=== PATIENT | female | born 1955 | race Caucasian/White ===

== ENCOUNTER 2018-08-11 10:55 | Emergency (ER) | payer MEDICARE ==
[~2018-08-11] VITALS: Ht 170.2 cm; Wt 72.6 kg
[2018-08-11] MEDS ORDERED: fentaNYL PF VIAL 100 MCG/2 ML VIAL IV ONE (11:30)
--- NOTE | 2018-08-11 11:32 | PHYS DOC ---
Past Medical History Past Medical History: MS, Other Additional Past Medical Histor: BRAIN ANYESRUM Past Surgical History: Other Additional Past Surgical Histo: SHOULDER, R/L LUNG Alcohol Use: None Drug Use: None Adult General Chief Complaint Chief Complaint: RIB PAIN HPI HPI Patient is a 63 year old female was presenting with chief complaint of left- sided pain. She had a colonoscopy on Sunday ever since she got home she has had slowly increasing left upper quadrant left flank area pain she says it feels like the last time she had a collapsed lung in the pain is sharp worsening with time worse with palpation and worse with deep breathing no fever no vomiting she had a normal bowel movement yesterday with no blood in it. She has not yet tried anything at home for relief the pain is now severe this morning. It does not radiate he took OUT polyps Dr. Herrera that it Review of Systems Review of Systems Constitutional: Denies fever or chills [] Eyes: Denies change in visual acuity, redness, or eye pain [] HENT: Denies nasal congestion or sore throat [] Respiratory: Mild stable shortness of breath Cardiovascular: No additional information not addressed in HPI [] Integument: Denies rash or skin lesions [] Neurologic: Denies headache, focal weakness or sensory changes [] Endocrine: Denies polyuria or polydipsia [] All other systems were reviewed and found to be within normal limits, except as documented in this note. Current Medications Current Medications Current Medications Medications (Trade) Dose Ordered Sig/Hollie Start Time Stop Time Status Last Admin Dose Admin Acetaminophen/ Hydrocodone Bitart (Lortab 5/325) 2 tab 1X ONCE 08/11/18 15:15 08/11/18 15:16 DC 08/11/18 15:25 2 TAB Ceftriaxone Sodium (Rocephin) 1 gm 1X ONCE 08/11/18 13:30 08/11/18 13:31 DC 08/11/18 14:05 1 GM Fentanyl Citrate (Fentanyl 2ml Vial) 50 mcg 1X ONCE 08/11/18 11:30 08/11/18 11:31 DC 08/11/18 12:49 50 MCG Info (CONTRAST GIVEN -- Rx MONITORING) 1 each PRN DAILY PRN 08/11/18 13:00 08/11/18 15:34 DC Iohexol (Omnipaque 300 Mg/ml) 75 ml 1X ONCE 08/11/18 13:00 1/6/19 13:01 DC 08/11/18 14:00 75 ML Allergies Allergies Allergies Coded Allergies Type Severity Reaction Last Updated Verified codeine Allergy Intermediate 08/11/18 Yes morphine Allergy Intermediate 08/11/18 Yes Physical Exam Physical Exam Constitutional: Well developed, well nourished, no acute distress, non-toxic appearance. [] HENT: Normocephalic, atraumatic, bilateral external ears normal, oropharynx moist, no oral exudates, nose normal. [] Eyes: PERRLA, EOMI, conjunctiva normal, no discharge. [] Neck: Normal range of motion, no tenderness, supple, no stridor. [] Cardiovascular:Heart rate regular rhythm, no murmur [] Lungs & Thorax: PROLONGED EXP PHASE FAINT WHEEZING EQUAL BS. Abdomen: Bowel sounds normal, soft,LUQ AND LQL tenderness, no masses, no pulsatile masses. [] Skin: Warm, dry, no erythema, no rash. [] Back: LEFT CVA TTP. Neurologic: Alert and oriented X 3, normal motor function, normal sensory function, no focal deficits noted. [] Psychologic: Affect normal, judgement normal, mood normal. [] Current Patient Data Vital Signs Vital Signs Date Time Temp Pulse Resp B/P (MAP) Pulse Ox O2 Delivery O2 Flow Rate FiO2 08/11/18 15:26 78 18 149/75 (99) 96 Room Air 08/11/18 11:01 97.5 97.5 Lab Values Laboratory Tests Test 08/11/18 12:32 08/11/18 13:05 Urine Collection Type Unknown Urine Color Yellow Urine Clarity Clear Urine pH 7.5 Urine Specific [place] <=1.005 Urine Protein Negative mg/dL (NEG-TRACE) Urine Glucose (UA) Negative mg/dL (NEG) Urine Ketones (Stick) Negative mg/dL (NEG) Urine Blood Negative (NEG) Urine Nitrite Negative (NEG) Urine Bilirubin Negative (NEG) Urine Urobilinogen Dipstick 0.2 mg/dL (0.2 mg/dL) Urine Leukocyte Esterase Moderate (NEG) Urine RBC 1-2 /HPF (0-2) Urine WBC 20-40 /HPF (0-4) Urine Squamous Epithelial Cells Mod /LPF Urine Bacteria Many /HPF (0-FEW) White Blood Count 7.7 x10^3/uL (4.0-11.0) Red Blood Count 4.79 x10^6/uL (3.50-5.40) Hemoglobin 15.4 g/dL (12.0-15.5) Hematocrit 44.2 % (36.0-47.0) Mean Corpuscular Volume 92 fL (79-100) Mean Corpuscular Hemoglobin 32 pg (25-35) Mean Corpuscular Hemoglobin Concent 35 g/dL (31-37) Red Cell Distribution Width 13.5 % (11.5-14.5) Platelet Count 296 x10^3/uL (140-400) Neutrophils (%) (Auto) 60 % (31-73) Lymphocytes (%) (Auto) 32 % (24-48) Monocytes (%) (Auto) 7 % (0-9) Eosinophils (%) (Auto) 2 % (0-3) Basophils (%) (Auto) 0 % (0-3) Neutrophils # (Auto) 4.6 x10^3uL (1.8-7.7) Lymphocytes # (Auto) 2.4 x10^3/uL (1.0-4.8) Monocytes # (Auto) 0.5 x10^3/uL (0.0-1.1) Eosinophils # (Auto) 0.1 x10^3/uL (0.0-0.7) Basophils # (Auto) 0.0 x10^3/uL (0.0-0.2) Sodium Level 142 mmol/L (136-145) Potassium Level 3.9 mmol/L (3.5-5.1) Chloride Level 105 mmol/L (98-107) Carbon Dioxide Level 29 mmol/L (21-32) Anion Gap 8 (6-14) Blood Urea Nitrogen 5 mg/dL (7-20) L Creatinine 0.5 mg/dL (0.6-1.0) L Estimated GFR (Cockcroft-Gault) 125.4 BUN/Creatinine Ratio 10 (6-20) Glucose Level 90 mg/dL (70-99) Calcium Level 9.4 mg/dL (8.5-10.1) Magnesium Level 1.9 mg/dL (1.8-2.4) Total Bilirubin 0.5 mg/dL (0.2-1.0) Aspartate Amino Transferase (AST) 14 U/L (15-37) L Alanine Aminotransferase (ALT) 30 U/L (14-59) Alkaline Phosphatase 94 U/L (46-116) Troponin I Quantitative < 0.017 ng/mL (0.000-0.055) Total Protein 7.1 g/dL (6.4-8.2) Albumin 3.3 g/dL (3.4-5.0) L Albumin/Globulin Ratio 0.9 (1.0-1.7) L Lipase 76 U/L (73-393) Laboratory Tests 08/11/18 13:05 Laboratory Tests 08/11/18 13:05 EKG EKG [] Radiology/Procedures Radiology/Procedures [] Impressions: FINDINGS: CT angiogram chest: Diagnostic quality PE study. There are no central, segmental or subsegmental filling defects in the pulmonary arteries. Mild diffuse atherosclerotic disease seen of the thoracic aorta. Clear neck base. Heart is normal in size. No pericardial or pleural effusion. No axillary, mediastinal or hilar adenopathy. Calcified left hilar and subcarinal lymph nodes are seen. Diffuse moderate emphysema. Central airways are patent. No suspicious bony lesions in the chest. CT abdomen pelvis: Liver, spleen, pancreas, adrenals within normal limits. Status post cholecystectomy. CBD is dilated without obstructing stone likely from reservoir effect from cholecystectomy. No nephrolithiasis or hydronephrosis. Punctate calcific densities seen along the course of the distal right ureter. No enlarged retroperitoneal or pelvic adenopathy. Moderate diffuse atherosclerotic disease seen of the abdominal aorta. No free pelvic fluid or ascites. No bowel obstruction. Status post hysterectomy. Urinary bladder is within normal limits. Low-lying transverse colon. No pneumoperitoneum. No suspicious bony lesion. IMPRESSION: 1. No PE. 2. Moderate diffuse emphysema. 3. No acute findings in the abdomen or pelvis. Electronically signed by: Rodolfo Torres DO (08/11/2018 2:47 PM) [facility] DICTATED and SIGNED BY: RODOLFO TORRES DO DATE: 08/11/18 5149 Course & Med Decision Making Course & Med Decision Making Pertinent Labs and Imaging studies reviewed. (See chart for details) []EKG, CXR, CT C/A/P R/O PE OR PERFORATION. FETANYL FOR PAIN SOME REPRODUCIBILITY ON EXAM33 Lab and CT workup is negative except for UTI patient's feeling better after ER treatment for schizophrenia and Plavix was given return precautions were discussed she appears well-appearing enough for discharge home. Dragon Disclaimer Dragon Disclaimer This electronic medical record was generated, in whole or in part, using a voice recognition dictation system. Departure Departure Impression: Primary Impression: Urinary tract infection Disposition: HOME, SELF-CARE Condition: STABLE Referrals: NON,STAFF (PCP) Scripts Cephalexin (CEPHALEXIN) 500 Mg Capsule 1 CAP PO QID, #40 CAP Prov: SERGIO HARDIN MD 08/11/18 Hydrocodone/Apap 5-325 (NORCO 5-325 TABLET) 1 Each Tablet 1-2 EACH PO PRN Q6HRS PRN for PAIN, #15 as needed for pain Prov: SERGIO HARDIN MD 08/11/18 SERGIO HARDIN MD Aug 11, 2018 11:32
--- NOTE | 2018-08-11 11:42 | RAD ---
PORTABLE CHEST 1V History: SHORT OF BREATH AND INCREASED LEFT SIDED CHEST PAIN SINCE SUNDAY AFTER COLONOSCOPY. Comparison: September 10, 2012 image available without report Cardiomediastinal silhouette: Not grossly enlarged. Lungs: No focal airspace consolidation. Pleura: No evidence of pleural effusion. Pneumothorax: None visualized Support Devices: None There is suture material overlying the left lateral lung base. Density overlying the right upper mediastinum likely a vascular stent. Impression: No consolidating infiltrate. Electronically signed by: Myron Beck MD (08/11/2018 11:37 AM) [facility]
[2018-08-11 12:48] LABS: BILIRUBIN,URINE NEGATIVE (NEG); CLARITY,URINE CLEAR; COLOR,URINE YELLOW; NITRITE,URINE NEGATIVE (NEG); PH,URINE 7.5; PROTEIN,URINE NEGATIVE (NEG-TRACE); UROBILINOGEN,URINE 0.2 mg/dL (0.2 mg/dL)
[2018-08-11] MEDS ORDERED: CONTRAST GIVEN. MC PRN (13:00)
[2018-08-11] MEDS ORDERED: IOHEXOL 300 MG/ML 100ML VIAL. IV ONE (13:00)
[2018-08-11 13:02] LABS: BACTERIA,URINE MANY /HPF (0-FEW); SQUAMOUS EPITHELIAL CELL,UR MOD /LPF; WBC,URINE 20-40 /HPF (0-4)
[2018-08-11] MEDS ORDERED: cefTRIAXone IV Push 1 GM VIAL. IVP ONE (13:30)
[2018-08-11 13:54] LABS: BASO % 0 % (0-3); EOS # 0.1 x10^3/uL (0.0-0.7); EOS % 2 % (0-3); HEMATOCRIT 44.2 % (36.0-47.0); HEMOGLOBIN 15.4 g/dL (12.0-15.5); LYMPH # 2.4 x10^3/uL (1.0-4.8); LYMPH % 32 % (24-48); MEAN CORPUSCULAR HEMOGLOBIN 32 pg (25-35); MEAN CORPUSCULAR HGB CONC 35 g/dL (31-37); MEAN CORPUSCULAR VOLUME 92 fL (79-100); MONO # 0.5 x10^3/uL (0.0-1.1); MONO % 7 % (0-9); NEUT # 4.6 x10^3uL (1.8-7.7); NEUT % 60 % (31-73); PLATELET COUNT 296 x10^3/uL (140-400); RED BLOOD COUNT 4.79 x10^6/uL (3.50-5.40); RED CELL DISTRIBUTION WIDTH 13.5 % (11.5-14.5); WHITE BLOOD COUNT 7.7 x10^3/uL (4.0-11.0)
[2018-08-11 14:03] LABS: CALCIUM 9.4 mg/dL (8.5-10.1); CREATININE 0.5 mg/dL (0.6-1.0); GFR 125.4; POTASSIUM 3.9 mmol/L (3.5-5.1)
[2018-08-11 14:09] LABS: ALBUMIN 3.3 g/dL (3.4-5.0); ALBUMIN/GLOBULIN RATIO 0.9 (1.0-1.7); MAGNESIUM 1.9 mg/dL (1.8-2.4); TOTAL BILIRUBIN 0.5 mg/dL (0.2-1.0); TOTAL PROTEIN 7.1 g/dL (6.4-8.2)
--- NOTE | 2018-08-11 14:51 | RAD ---
PQRS Compliance statement: One or more of the following individualized dose reduction techniques were utilized for this examination: 1. Automated exposure control. 2. Adjustment of the mA and/or kV according to patient size. 3. Use of iterative reconstruction technique. Indication:lt.flank-pleuritic pain;recent colonoscopy; also eval for pe; cough; Omni 300, 75ml TECHNIQUE: CT angiogram chest and CT abdomen and pelvis in portal venous phase with IV contrast with multiplanar reformats. COMPARISON: None FINDINGS: CT angiogram chest: Diagnostic quality PE study. There are no central, segmental or subsegmental filling defects in the pulmonary arteries. Mild diffuse atherosclerotic disease seen of the thoracic aorta. Clear neck base. Heart is normal in size. No pericardial or pleural effusion. No axillary, mediastinal or hilar adenopathy. Calcified left hilar and subcarinal lymph nodes are seen. Diffuse moderate emphysema. Central airways are patent. No suspicious bony lesions in the chest. CT abdomen pelvis: Liver, spleen, pancreas, adrenals within normal limits. Status post cholecystectomy. CBD is dilated without obstructing stone likely from reservoir effect from cholecystectomy. No nephrolithiasis or hydronephrosis. Punctate calcific densities seen along the course of the distal right ureter. No enlarged retroperitoneal or pelvic adenopathy. Moderate diffuse atherosclerotic disease seen of the abdominal aorta. No free pelvic fluid or ascites. No bowel obstruction. Status post hysterectomy. Urinary bladder is within normal limits. Low-lying transverse colon. No pneumoperitoneum. No suspicious bony lesion. IMPRESSION: 1. No PE. 2. Moderate diffuse emphysema. 3. No acute findings in the abdomen or pelvis. Electronically signed by: Rodolfo Coleman DO (08/11/2018 2:47 PM) [facility]
[2018-08-11] MEDS ORDERED: HYDR-3164 PO (15:06)
[2018-08-11] MEDS ORDERED: CEPH500C PO (15:06)
[2018-08-11] MEDS ORDERED: HYDROcodone/APAP 5/325MG 1 TAB TABLET PO ONE (15:15)
[2018-08-11 15:26] VITALS: BP 149/75
--- NOTE | 2018-08-11 17:18 | EKG ---
[facility] [address] [place] [address] Test Date: 2018-08-11 Test Time: 11:51:46 Pat Name: LILIYA MORALES Department: Room: Gender: F [employer] Report Developer: : [id number] Requested By: SERGIO HARDIN Order Number: [id number] Reading MD: Measurements Intervals [place] Rate: 80 P: 51 IA: 158 QRS: 34 QRSD: 82 T: 33 QT: 354 QTc: 412 Interpretive Statements SINUS RHYTHM QRS(T) CONTOUR ABNORMALITY CONSISTENT WITH ANTEROSEPTAL INFARCT AGE UNDETERMINED ABNORMAL ECG RI6.01 No previous ECG available for comparison
== END 2018-08-11 15:34 | disposition home or self-care (01) ==
LOC: ER 10:55
DX: N39.0 Urinary tract infection, site not specified (principal); I25.2 Old myocardial infarction; Z88.5 Allergy status to narcotic agent
CPT/HCPCS: 36415; 71045; 71275; 74177; 80053; 81001; 83690; 83735; 84484; 85025; 87086; 93005; 96374; 96375; 99284; J0696; J3010; Q9967; 87186

== ENCOUNTER → 2020-08-18 | Outpatient (CLI) | payer MEDICARE ==
[~2020-08-18] MED LIST: CEPH500C PO; HYDR-3164 PO
--- NOTE | 2020-08-19 08:36 | KCIC ---
XR LUMBAR SPINE 2-3V 08/18/2020 1:32 PM INDICATION: Bilateral lumbar radiculopathy COMPARISON: None available. TECHNIQUE: 3 views of the lumbar spine are provided. FINDINGS/ IMPRESSION: 1. 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 There is minimal levoconvex curvature of the lumbar spine. Sagittal alignment appears intact. No acute fra cture is identified. Mild disc height loss L5-S1 with moderate facet arthropathy. Sacroiliac joints a re well aligned. 2. Cholecystectomy clips are identified in the right upper quadrant abdomen. Mild amount of stool not ed throughout the colon. Lung bases are clear. Sacroiliac joints are well aligned. Electronically signed by: Jacqueline Worthy MD (08/19/2020 8:34 AM) [id number]
== END ==
LOC: KCIC 13:29
PROVIDERS: ATTEND Family Medicine
DX: M47.26 Other spondylosis with radiculopathy, lumbar region (principal); M43.8X6 Other specified deforming dorsopathies, lumbar region; Z90.49 Acquired absence of other specified parts of digestive tract
CPT/HCPCS: 72100

== ENCOUNTER → 2021-01-12 | Outpatient (CLI) | payer MEDICARE ==
--- NOTE | 2021-01-12 10:44 | KCIC ---
EXAM: Abdomen sonogram. HISTORY: Pain. TECHNIQUE: Sonographic imaging of the abdomen was performed. COMPARISON: 08/11/2018. FINDINGS: The liver is normal in size. No focal hepatic lesion is seen. The gallbladder is surgically absent. There is common bile duct dilatation, measuring 20 mm. There is suggestion of echogenic debr is within the common bile duct. The right kidney, pancreas and inferior vena cava are unremarkable. IMPRESSION: 1. Common bile duct dilatation and possible common bile duct debris. This may be due to reservoir eff ect status post cholecystectomy. MRCP may be useful if this concern for occult obstructing etiology. 2. Otherwise, unremarkable abdomen sonogram. Electronically signed by: Kerrie Shine MD (01/12/2021 10:42 AM) [id number]
== END ==
LOC: KCIC US 09:42
PROVIDERS: ATTEND Internal Medicine Gastroenterology
DX: R10.9 Unspecified abdominal pain (principal); Z90.49 Acquired absence of other specified parts of digestive tract
CPT/HCPCS: 76705

== ENCOUNTER → 2021-05-04 | Day surgery (SDC) | payer MEDICARE ==
[~2021-05-04] VITALS: Ht 172.7 cm; Wt 68.0 kg
[~2021-05-04] MED LIST changes: +ALBU2.5V8 IH; +ASPI-630 PO; +CALC500T54 PO; +CARV6.25 PO; +CLOP75TA PO; +FLUT1BLS3 IH; +GABA300C18 PO; +GLYCOPYRROLATE 1 MG/5 ML SYRINGE. ONE; +IOHEXOL 300 MG/ML 100ML VIAL. ONE; +IV RINGERS,LACTATED 1000ML 1,000 ML IV SCH; +LIDOCAINE 2% 100 MG/5 ML SYRINGE. ONE; +LIPITOR80 MG PO; +LOSA-73 PO; +MAGN250T2 PO; +NEOSTIGMINE METHYLSULFATE 5 MG/5 ML SYRINGE. ONE; +OMEP40CA7 PO; +PROPOFOL 10 MG/ML (20ML) VIAL. IV ONE; +ROCURONIUM 50 MG/5 ML VIAL. ONE
[2021-05-04 08:44] VITALS: BP 138/80
[2021-05-04 10:35] VITALS: BP 158/75
--- NOTE | 2021-05-04 10:58 | CONS ---
DATE OF CONSULTATION: 05/04/2021 UPDATED HISTORY AND PHYSICAL REASON FOR CONSULTATION: Abdominal pain, status post shagufta, had an abnormal ultrasound with possible common bile duct debris. HISTORY OF PRESENT ILLNESS: A 66-year-old female with past medical history significant for COPD, hypertension, hyperlipidemia, and reflux who is seen with the above symptoms, pain similar to prior cholecystectomy. Ultrasound did reveal debris. An MRCP was attempted, but this could not be performed due to a PRODUCT REPRESENTATIVE stent. She is here today for ERCP with possible sphincterotomy and stone extraction. Risks and benefits were discussed. The patient is willing to proceed. PAST MEDICAL HISTORY: Hypertension, COPD, gastroesophageal reflux disease. ALLERGIES: CODEINE AND MORPHINE. MEDICATIONS: Include albuterol, aspirin, atorvastatin, calcium, carvedilol, Plavix, gabapentin, losartan, magnesium, and omeprazole. SURGICAL HISTORY: Status post AAA repair, tubal ligation, lung surgery, cholecystectomy, hysterectomy. REVIEW OF SYSTEMS: Per records. PHYSICAL EXAMINATION: GENERAL: Reveals a well-nourished, well-developed female who is alert, cooperative, in no acute distress. VITAL SIGNS: Temperature 96.9, pulse 60, respirations 18, pulse ox 96%. LUNGS: Clear. CARDIOVASCULAR: Reveals an S1, S2, without S3, S4 or appreciable murmur. ABDOMEN: Reveals a soft abdomen, normal bowel sounds without appreciable hepatosplenomegaly. Multiple surgical incisions. EXTREMITIES: Reveals no cyanosis, clubbing or edema. IMPRESSION: Abdominal pain, status post cholecystectomy, abnormal ultrasound, retained common duct stone certainly in the differential as well as possible malignancy, image artifact. Therefore, recommend the patient to proceed with ERCP with possible sphincterotomy and stone extraction as MRCP cannot be performed due to previous PRODUCT REPRESENTATIVE stenting. ARIANNE/FRANKIE/JONELLE DR: Angélica TID: [id number]
--- NOTE | 2021-05-04 11:02 | RAD ---
INDICATION: Abdominal pain. Sphincterotomy with balloon sweep. Postcholecystectomy. Fluoro for proced ure. IMPRESSION: Fluoroscopy was utilized by the clinical service to assist with their procedure. There are 12 saved images/series. The limited saved images show procedural steps from ERCP with cannulation of the common bile duct. Nu merous tiny filling defects present throughout the dilated duct. 2 minutes 23 seconds of fluoroscopy time was used. This dictation is for the usage of fluoroscopy only. Please see the clinical service's procedure note for detail on the procedure. Electronically signed by: Abdiel Shaw MD (05/04/2021 11:00 AM) [id number]
== END | disposition home or self-care (01) ==
LOC: ENDOS 07:54
PROVIDERS: ATTEND Internal Medicine Gastroenterology
DX: R10.9 Unspecified abdominal pain (principal); K80.50 Calculus of bile duct without cholangitis or cholecystitis without obstruction; K83.8 Other specified diseases of biliary tract; K21.9 Gastro-esophageal reflux disease without esophagitis; J44.9 Chronic obstructive pulmonary disease, unspecified; I11.0 Hypertensive heart disease with heart failure; I50.9 Heart failure, unspecified; M19.90 Unspecified osteoarthritis, unspecified site; F17.210 Nicotine dependence, cigarettes, uncomplicated; Z79.82 Long term (current) use of aspirin; Z79.899 Other long term (current) drug therapy; Z90.710 Acquired absence of both cervix and uterus; Z98.51 Tubal ligation status; Z98.890 Other specified postprocedural states; Z88.5 Allergy status to narcotic agent; Z88.6 Allergy status to analgesic agent
CPT/HCPCS: 43262; 43264; 74328; C1769; J2704; J2710; J3490; Q9967

== ENCOUNTER 2021-05-10 19:18 | Emergency (ER) | payer MEDICARE ==
[~2021-05-10] VITALS: Ht 170.2 cm; Wt 52.2 kg
[~2021-05-10 19:18] MED LIST changes: -GLYCOPYRROLATE 1 MG/5 ML SYRINGE. ONE; -IOHEXOL 300 MG/ML 100ML VIAL. ONE; -IV RINGERS,LACTATED 1000ML 1,000 ML IV SCH; -LIDOCAINE 2% 100 MG/5 ML SYRINGE. ONE; -NEOSTIGMINE METHYLSULFATE 5 MG/5 ML SYRINGE. ONE; -PROPOFOL 10 MG/ML (20ML) VIAL. IV ONE; -ROCURONIUM 50 MG/5 ML VIAL. ONE
[2021-05-10] MEDS ORDERED: IV NORMAL SALINE 1000ML BAG 1,000 ML IV ONE (20:30)
[2021-05-10] MEDS ORDERED: ONDANSETRON PF 4 MG/2 ML VIAL. IVP ONE (20:30)
[2021-05-10] MEDS ORDERED: fentaNYL PF VIAL 100 MCG/2 ML VIAL IVP ONE (20:30)
[2021-05-10 20:52] LABS: BASO % 0 % (0-3); EOS # 0.1 x10^3/uL (0.0-0.7); EOS % 1 % (0-3); HEMATOCRIT 38.3 % (36.0-47.0); HEMOGLOBIN 13.3 g/dL (12.0-15.5); LYMPH % 40 % (24-48); MEAN CORPUSCULAR HEMOGLOBIN 32 pg (25-35); MEAN CORPUSCULAR HGB CONC 35 g/dL (31-37); MEAN CORPUSCULAR VOLUME 93 fL (79-100); MONO # 0.4 x10^3/uL (0.0-1.1); MONO % 6 % (0-9); NEUT # 3.9 x10^3/uL (1.8-7.7); NEUT % 52 % (31-73); PLATELET COUNT 285 x10^3/uL (140-400); RED BLOOD COUNT 4.11 x10^6/uL (3.50-5.40); RED CELL DISTRIBUTION WIDTH 13.8 % (11.5-14.5); WHITE BLOOD COUNT 7.4 x10^3/uL (4.0-11.0)
[2021-05-10 21:00] LABS: CALCIUM 9.1 mg/dL (8.5-10.1); CREATININE 0.6 mg/dL (0.6-1.0); GFR 100.6; POTASSIUM 3.6 mmol/L (3.5-5.1)
[2021-05-10 21:07] LABS: ALBUMIN 3.3 g/dL (3.4-5.0); TOTAL BILIRUBIN 0.4 mg/dL (0.2-1.0); TOTAL PROTEIN 6.6 g/dL (6.4-8.2)
[2021-05-10] MEDS ORDERED: CONTRAST GIVEN. MC PRN (21:30)
[2021-05-10] MEDS ORDERED: IOHEXOL 300 MG/ML 100ML VIAL. IV ONE (21:30)
--- NOTE | 2021-05-10 21:56 | PHYS DOC ---
Past Medical History Past Medical History: WI, Other Additional Past Medical Histor: BRAIN ANYESRUM (JOSÉ LUIS LAND APRN) Past Surgical History: Cholecystectomy, Other Additional Past Surgical Histo: SHOULDER, R/L LUNG (JOSÉ LUIS LAND APRN) Smoking Status: Current Every Day Smoker Alcohol Use: None Drug Use: None (JOSÉ LUIS LAND APRN) General Adult EDM: Chief Complaint: ABDOMINAL PAIN HPI: HPI: Patient is a 66 year old who presents with epigastric pain. Patient reports pain is sharp, stabbing that radiates into her back. Patient states that she normally can lay on her stomach and apply heating pad to her back which will resolve the pain, but today the pain would not resolve. Patient states she had an ERCP on Sunday and had stones removed. Patient states that she has been out of pain medication since last night. Patient has history of COPD, hypertension, previous WI. (JOSÉ LUIS LAND APRN) Review of Systems: Review of Systems: ROS At least 10 ROS systems have been reviewed and are negative except as documented in the HPI. General: Negative except as outlined in HPI above. Skin: Negative except as outlined in HPI above. HEENT: Negative except as outlined in HPI above. Neck: Negative except as outlined in HPI above. Respiratory: Negative except as outlined in HPI above.. Cardiovascular: Negative except as outlined in HPI above. Abdomen: Negative except as outlined in HPI above. : Negative except as outlined in HPI above. Back/MSK: Negative except as outlined in HPI above. Neuro: Negative except as outlined in HPI above. Psych: Negative except as outlined in HPI above. (JOSÉ LUIS LAND APRN) Heart Score: C/O Chest Pain: No Risk Factors: Risk Factors: DM, Current or recent (<one month) smoker, HTN, HLP, family history of CAD, obesity. Risk Scores: Score 0 - 3: 2.5% MACE over next 6 weeks - Discharge Home Score 4 - 6: 20.3% MACE over next 6 weeks - Admit for Clinical Observation Score 7 - 10: 72.7% MACE over next 6 weeks - Early Invasive Strategies (JOSÉ LUIS LAND APRN) Current Medications: Current Medications Medications (Trade) Dose Ordered Sig/Hollie Start Time Stop Time Status Last Admin Dose Admin Fentanyl Citrate (Fentanyl 2ml Vial) 75 mcg 1X ONCE 10/5/21 20:30 05/10/21 20:31 DC 05/10/21 20:47 75 MCG Info (CONTRAST GIVEN -- Rx MONITORING) 1 each PRN DAILY PRN 05/10/21 21:30 05/12/21 21:29 Iohexol (Omnipaque 300 Mg/ml) 75 ml 1X ONCE 05/10/21 21:30 05/10/21 21:31 DC 05/10/21 21:30 75 ML Ondansetron HCl (Zofran) 4 mg 1X ONCE 05/10/21 20:30 05/10/21 20:31 DC 05/10/21 20:47 4 MG Sodium Chloride 1,000 ml @ 0 mls/hr 1X ONCE 05/10/21 20:30 05/10/21 20:31 DC 05/10/21 20:48 100 MLS/HR (JOSÉ LUIS LAND APRN) Allergies: Allergies: Allergies Coded Allergies Type Severity Reaction Last Updated Verified codeine Allergy Intermediate 05/04/21 Yes morphine Allergy Intermediate 05/04/21 Yes (JOSÉ LUIS LAND APRN) Physical Exam: PE: Constitutional: Well developed, well nourished, no acute distress, non-toxic appearance. [] HENT: Normocephalic, atraumatic, bilateral external ears normal, oropharynx moist, no oral exudates, nose normal. [] Eyes: PERRLA, EOMI, conjunctiva normal, no discharge. [] Neck: Normal range of motion, no tenderness, supple, no stridor. [] Cardiovascular:Heart rate regular rhythm, no murmur [] Lungs & Thorax: Bilateral breath sounds clear to auscultation [] Abdomen: Bowel sounds normal, soft, no tenderness, no masses, no pulsatile masses. [] Skin: Warm, dry, no erythema, no rash. [] Back: No tenderness, no CVA tenderness. [] Extremities: No tenderness, no cyanosis, no clubbing, ROM intact, no edema. [] Neurologic: Alert and oriented X 3, normal motor function, normal sensory function, no focal deficits noted. [] Psychologic: Affect normal, judgement normal, mood normal. [] (JOSÉ LUIS LAND APRN) Current Patient Data: Labs: Laboratory Tests Test 05/10/21 17:35 White Blood Count 7.4 x10^3/uL (4.0-11.0) Red Blood Count 4.11 x10^6/uL (3.50-5.40) Hemoglobin 13.3 g/dL (12.0-15.5) Hematocrit 38.3 % (36.0-47.0) Mean Corpuscular Volume 93 fL (79-100) Mean Corpuscular Hemoglobin 32 pg (25-35) Mean Corpuscular Hemoglobin Concent 35 g/dL (31-37) Red Cell Distribution Width 13.8 % (11.5-14.5) Platelet Count 285 x10^3/uL (140-400) Neutrophils (%) (Auto) 52 % (31-73) Lymphocytes (%) (Auto) 40 % (24-48) Monocytes (%) (Auto) 6 % (0-9) Eosinophils (%) (Auto) 1 % (0-3) Basophils (%) (Auto) 0 % (0-3) Neutrophils # (Auto) 3.9 x10^3/uL (1.8-7.7) Lymphocytes # (Auto) 3.0 x10^3/uL (1.0-4.8) Monocytes # (Auto) 0.4 x10^3/uL (0.0-1.1) Eosinophils # (Auto) 0.1 x10^3/uL (0.0-0.7) Basophils # (Auto) 0.0 x10^3/uL (0.0-0.2) Sodium Level 142 mmol/L (136-145) Potassium Level 3.6 mmol/L (3.5-5.1) Chloride Level 104 mmol/L (98-107) Carbon Dioxide Level 30 mmol/L (21-32) Anion Gap 8 (6-14) Blood Urea Nitrogen 12 mg/dL (7-20) Creatinine 0.6 mg/dL (0.6-1.0) Estimated GFR (Cockcroft-Gault) 100.6 BUN/Creatinine Ratio 20 (6-20) Glucose Level 117 mg/dL (70-99) H Calcium Level 9.1 mg/dL (8.5-10.1) Total Bilirubin 0.4 mg/dL (0.2-1.0) Aspartate Amino Transferase (AST) 44 U/L (15-37) H Alanine Aminotransferase (ALT) 39 U/L (14-59) Alkaline Phosphatase 117 U/L (46-116) H Total Protein 6.6 g/dL (6.4-8.2) Albumin 3.3 g/dL (3.4-5.0) L Albumin/Globulin Ratio 1.0 (1.0-1.7) Laboratory Tests 05/10/21 17:35 Laboratory Tests 05/10/21 17:35 Vital Signs: Vital Signs Date Time Temp Pulse Resp B/P (MAP) Pulse Ox O2 Delivery O2 Flow Rate FiO2 05/10/21 21:20 97 Nasal Cannula 2.0 05/10/21 19:20 98.2 85 18 148/83 (104) 98.2 (JOSÉ LUIS LAND APRN) EKG: EKG: Sinus rhythm. Heart rate 77 bpm. No STEMI. Read at 2054 [] (JOSÉ LUIS LAND APRN) Radiology/Procedures: Radiology/Procedures: []CT abdomen and pelvis with contrast: Reason for examination: Abdominal pain. Comparison is made to previous study dated 08/11/2018. Helical images were obtained through the abdomen and pelvis with intravenous administration of 75 cc Omnipaque 300. Reconstruction was performed in sagittal and coronal planes. Exposure: One or more of the following individualized dose reduction techniques were utilized for this examination: 1. Automated exposure control 2. Adjustment of the mA and/or kV according to patient size 3. Use of iterative re construction technique. Calcified granuloma is seen at the left lung base laterally and peripherally. The heart size is normal with no pericardial effusion. No focal abnormalities are seen at the liver. There is some mild intrahepatic biliary dilatation post cholecystectomy with the common bile duct dilated at 1.5 cm in the pancreatic head. No abnormality is seen at the spleen, adrenal glands or pancreas. The abdominal aorta shows arteriosclerotic vascular calcification with no aneurysmal dilatation or dissection. The colon shows a few scattered diverticuli but no diverticulosis, diverticulitis or colitis. Ileal colonic anastomosis is seen in the mid right abdomen. The small intestinal tract shows no abnormal dilatation, wall thickening or obstruction. There is large amount of gastric content in the stomach but no gastric obstruction is seen. No abnormality seen at the duodenum. The kidneys show a small cyst at the lower pole of the left kidney. No renal calculi, hydronephrosis or obstructive uropathy is evident. No abnormality seen at the bladder or vaginal cuff. No free fluid or free air seen in the abdomen or pelvis. No acute bony abnormalities are seen. IMPRESSION: Dilated common bile duct at 1.5 cm with some mild intrahepatic biliary dilatation post cholecystectomy. Small cyst at the lower pole the left kidney. No other acute abnormality seen in the abdomen or pelvis. Electronically signed by: Lorie Llamas MD (05/10/2021 10:42 PM) CYNTHIA (JOSÉ LUIS LAND APRN) Course & Med Decision Making: Course & Med Decision Making Pertinent Labs and Imaging studies reviewed. (See chart for details) [] 66-year-old female presents with sharp, epigastric abdominal pain. Patient reports she had a ERCP on Sunday and ran out of pain medication last night. Patient given fentanyl, Zofran, NS bolus to treat symptoms CT of abdomen pelvis is unremarkable. All labs unremarkable. Patient states her pain is controlled and is requesting to be discharged. Advised patient she needs to call Dr. Herrera tomorrow to make a follow-up appointment for further management. Given strict return precautions. Patient is hemodynamically stable upon disposition. (JOSÉ LUIS LAND APRN) Course & Med Decision Making I have reviewed and was available for consultation in the emergency department for this patient that was seen by midlevel provider. Agree with plan. Sergio Blackburn DO (SERGIO BLACKBURN DO) Gissel Disclaimer: Gissel Disclaimer: This electronic medical record was generated, in whole or in part, using a voice recognition dictation system. (JOSÉ LUIS LAND APRN) Departure Departure Impression: Primary Impression: Epigastric abdominal pain Additional Impression: Nausea Disposition: HOME / SELF CARE / HOMELESS Condition: STABLE Referrals: MALINI RODGERS MD (PCP) Patient Instructions: Abdominal Pain, [id number] Additional Instructions: You were seen in the ED for abdominal pain and nausea. CT of your abdomen pelvis was unremarkable. Your pain improved after you were given pain medication. Please call Dr. Herrera and make a follow-up appointment for further management. Return to the emergency room if you have worsening symptoms or concerns. EMERGENCY DEPARTMENT GENERAL DISCHARGE INSTRUCTIONS Thank you for coming to [facility] Emergency Department (ED) today and trusting us with you care. We trust that you had a positive experience in our Emergency Department. If you wish to speak to the department management, you may call the Director at [phone]. YOUR FOLLOW UP INSTRUCTIONS ARE FOLLOWS: 1. Do you have a private Doctor? If you do not have a private doctor, please ask for a resource list of physicians or clinics that may be able to assist you with follow up care. 2. The Emergency Physicain has interpreted your x-rays. The X-Ray specialist will also review them. If there is a change in the findings, you will be notified in 48 hours when at all possible. 3. A lab test or culture has been done, your results will be reviewed and you will be notified if you need a change in treatment. ADDITIONAL INSTRUCTIONS AND INFORMATION: 1. Your care today has been supervised by a physician who is specially trained in emergency care. Many problems require more than one evaluation for a complete diagnosis and treatment. We recommend that you schedule your follow up appointment as recommended to ensure complete treatment of you illness or injury. If you are unable to obtain follow up care and continue to have a problem, or if your condition worsens, we recommend that you return to the ED. 2. We are not able to safely determine your condition over the phone nor are we able to give sound medical advice over the phone. For these safety reasons, if you call for medical advice we will ask you to come to the ED for further evaluation. 3. If you have any questions regarding these discharge instructions please call the ED at [phone]. SAFETY INFORMATION: In the interest of safety, wellness, and injury prevention; we encourage you to wear your sealbelt, if you smoke; quite smoking, and we encourage family to use a protective helmet for bicycling and other sporting events that present an increased risk for head injury. IF YOUR SYMPTOMS WORSEN OR NEW SYMPTOMS DEVELOP, OR YOU HAVE CONCERNS ABOUT YOUR CONDITION; OR IF YOUR CONDITION WORSENS WHILE YOU ARE WAITING FOR YOUR FOLLOW UP APPOINTMENT; EITHER CONTACT YOUR PRIMARY CARE DOCTOR, THE PHYSICIAN WHOSE NAME AND NUMBER YOU WERE GIVEN, OR RETURN TO THE ED IMMEDIATELY. JOSÉ LUIS LAND APRN May 10, 2021 21:56 SERGIO BLACKBURN DO May 11, 2021 01:21
[2021-05-10 22:06] LABS: BILIRUBIN,URINE NEGATIVE (NEG); CLARITY,URINE CLEAR; COLOR,URINE YELLOW; NITRITE,URINE NEGATIVE (NEG); PH,URINE 7.5 (<5.0-8.0); PROTEIN,URINE NEGATIVE (NEG-TRACE)
[2021-05-10 22:16] LABS: BACTERIA,URINE 0 /HPF (0-FEW)
--- NOTE | 2021-05-10 22:45 | RAD ---
CT abdomen and pelvis with contrast: Reason for examination: Abdominal pain. Comparison is made to previous study dated 08/11/2018. Helical images were obtained through the abdomen and pelvis with intravenous administration of 75 cc Omnipaque 300. Reconstruction was performed in sagittal and coronal planes. Exposure: One or more of the following individualized dose reduction techniques were utilized for thi s examination: 1. Automated exposure control 2. Adjustment of the mA and/or kV according to patient size 3. Use of iterative reconstruction technique. Calcified granuloma is seen at the left lung base laterally and peripherally. The heart size is yeyo l with no pericardial effusion. No focal abnormalities are seen at the liver. There is some mild intrahepatic biliary dilatation post cholecystectomy with the common bile duct dilated at 1.5 cm in the pancreatic head. No abnormality i s seen at the spleen, adrenal glands or pancreas. The abdominal aorta shows arteriosclerotic vascular calcification with no aneurysmal dilatation or dissection. The colon shows a few scattered diverticu li but no diverticulosis, diverticulitis or colitis. Ileal colonic anastomosis is seen in the mid rig ht abdomen. The small intestinal tract shows no abnormal dilatation, wall thickening or obstruction. There is large amount of gastric content in the stomach but no gastric obstruction is seen. No abnorm ality seen at the duodenum. The kidneys show a small cyst at the lower pole of the left kidney. No re nal calculi, hydronephrosis or obstructive uropathy is evident. No abnormality seen at the bladder or vaginal cuff. No free fluid or free air seen in the abdomen or pelvis. No acute bony abnormalities are seen. IMPRESSION: Dilated common bile duct at 1.5 cm with some mild intrahepatic biliary dilatation post cholecystectom y. Small cyst at the lower pole the left kidney. No other acute abnormality seen in the abdomen or pelvis. Electronically signed by: Lorie Llamas MD (05/10/2021 10:42 PM) LEVON
[2021-05-10 23:00] VITALS: BP 118/68
--- NOTE | 2021-05-11 00:15 | RAD ---
INDICATION: Reason: abdominal pain / Spl. Instructions: / History: COMPARISON: August 2018 FINDINGS: Single view of chest obtained. Disorganized pulmonary markings bilaterally with lucency most severe at the lung apices again seen. Postoperative changes to left lung with suture line. Relative opacity at the bilateral midlung. IMPRESSION: * Disorganized pulmonary markings bilaterally with relative lucency at the lung apices which can be seen with emphysema. * Mild haziness at the bilateral midlung. This may be secondary to overlap of structures but atelect asis or early infiltrate not excluded. * There is a possible nodule at the right upper lung versus overlap of structures. Nonemergent follo w-up could be obtained to ensure this does not persist. Electronically signed by: Neo Puckett MD (05/11/2021 12:12 AM) [id number]
--- NOTE | 2021-05-11 04:45 | EKG ---
[facility] [address] [place] [address] Test Date: 2021-05-10 Test Time: 20:53:38 Pat Name: LILIYA MORALES Department: Room: Gender: F Mechanical Intern: : 1955 Requested By: JOSÉ LUIS LAND Order Number: [id number] Reading MD: Samuel Scott Measurements Intervals [place] Rate: 77 P: 53 NM: 158 QRS: 49 QRSD: 92 T: 43 QT: 378 QTc: 430 Interpretive Statements SINUS RHYTHM Electronically Signed On 05-12-2021 12:44:49 CDT by Samuel Scott
== END 2021-05-10 23:53 | disposition home or self-care (01) ==
LOC: ER 19:18
DX: R10.13 Epigastric pain (principal); R11.0 Nausea; I25.2 Old myocardial infarction; I10 Essential (primary) hypertension; J44.9 Chronic obstructive pulmonary disease, unspecified; F17.200 Nicotine dependence, unspecified, uncomplicated; Z90.49 Acquired absence of other specified parts of digestive tract; Z88.5 Allergy status to narcotic agent
CPT/HCPCS: 36415; 71045; 74177; 80053; 81001; 85025; 87086; 93005; 96374; 96375; 99284; J2405; J3010; J7030; Q9967